=== PATIENT | male | born 1975 | race African-American/Black ===

== ENCOUNTER 2018-07-09 16:23 | Emergency (ER) | payer OTHER ==
[~2018-07-09] VITALS: Ht 177.8 cm; Wt 95.7 kg
[2018-07-09] MEDS ORDERED: CAPTOPRIL25 MG PO (16:41)
== END 2018-07-09 21:16 | disposition home or self-care (01) ==
LOC: ER 16:23
DX: K29.70 Gastritis, unspecified, without bleeding (principal)

== ENCOUNTER 2023-11-14 07:59 | Emergency (ER) | payer OTHER ==
[~2023-11-14] VITALS: Ht 182.9 cm; Wt 90.7 kg
[~2023-11-14 07:59] MED LIST: CAPTOPRIL25 MG PO
[2023-11-14 09:08] LABS: HEMATOCRIT 47.9 % (39.0-48.0); HEMOGLOBIN 15.8 g/dL (13-16.00); MEAN CELL VOLUME 81.3 fL (80.0-100.00); MEAN CORPUSCULAR HEMOGLOBIN 26.9 pg (27.00-32.0); PLATELET COUNT 227 K/uL (150-450); RED BLOOD COUNT 5.89 M/uL (4.00-6.00); RED CELL DISTRIBUTION WIDTH 16.2 % (11.5-14.5)
[2023-11-14 09:53] LABS: ALBUMIN 4.2 gm/dL (3.4-5.0); BILIRUBIN TOTAL 0.9 mg/dL (0.3-1.2); BILIRUBIN,CONJUGATED 0.2 mg/dL (0.0-0.2); BILIRUBIN,UNCONJUGATED 0.7 mg/dL (0.0-0.6); CALCIUM 9.5 mg/dL (8.5-10.1); CREATININE SERUM 1.16 mg/dL (0.70-1.30); GFR 66.92; POTASSIUM 3.66 mEq/L (3.5-5.1); TOTAL PROTEIN 8.2 gm/dL (6.4-8.2)
[2023-11-14 10:08] LABS: PH,URINE 6.5 (5.0-8.0); URINE APPEARANCE Clear; URINE BILIRRUBIN Negative (NEGATIVE); URINE BLOOD Negative; URINE COLOR Yellow; URINE GLUCOSE Negative (NEGATIVE); URINE LEUKOCYTE Negative; URINE NITRATE Negative; URINE PROTEIN Negative (NEGATIVE)
[2023-11-14 10:14] LABS: URINE BACTERIA 6.2 uL (0.0-1933); URINE EPITHELIAL CELLS 1.9 uL (0.0-38.8)
[2023-11-14 10:24] LABS: URINE RBC 1.2 uL (0.0-20.8); URINE WBC 1.6 uL (0.0-23.2)
== END 2023-11-14 12:19 | disposition home or self-care (01) ==
LOC: ER 07:59
PROVIDERS: General Practice
DX: R55 Syncope and collapse (principal); Z88.6 Allergy status to analgesic agent; I10 Essential (primary) hypertension